=== PATIENT | female | born 1960 | race Caucasian/White ===

== ENCOUNTER 2025-01-20 18:05 | Emergency (ER) | payer MEDICAID ==
[~2025-01-20] VITALS: Ht 162.6 cm; Wt 75.0 kg
[2025-01-20 18:17] VITALS: BP 103/52; PULSE 97; RESP 18; TEMP 37.1; O2SAT 98
[2025-01-20] MEDS ORDERED: ASPIRIN 325MG EC TABLET PO ONE (19:00)
[2025-01-20 20:59] LABS: CHLORIDE 98 mEq/L (98-107); SODIUM 137 mEq/L (136-145)
[2025-01-20 21:00] LABS: CALCIUM 9.2 mg/dL (8.7-10.4); CARBON DIOXIDE 31 mEq/L (21-32)
[2025-01-20 21:05] LABS: CREATININE 0.7 mg/dL (0.6-1.0); GLUCOSE 97 mg/dL (70-105); UREA NITROGEN BLOOD 13 mg/dL (9-23)
[2025-01-20 21:12] LABS: POTASSIUM 2.5 mEq/L (3.5-5.1); TROPONIN I HIGH SENSITIVITY < 4 ng/L (3.0-34)
[2025-01-20] MEDS ORDERED: POTASSIUM CHLORIDE 20MEQ/PACKET PO ONE (21:30)
[2025-01-20 22:11] LABS: BASOPHILS % 0.4 % (0.0-2.0); EOSINOPHILS % 2.3 % (0.0-5.0); HEMATOCRIT. 38.8 % (36.0-48.0); HEMOGLOBIN. 13.3 g/dL (12.0-16.0); LYMPHOCYTES % 35.8 % (20.0-50.0); MEAN CORPUSCULAR HEMOGLOBIN 29.4 pg (28.0-32.0); MEAN CORPUSCULAR HGB CONC 34.3 g/dL (31.0-37.0); MEAN CORPUSCULAR VOLUME 85.6 fL (81.0-99.0); MONOCYTES % 8.7 % (2.0-8.0); NEUTROPHILS % 52.8 % (40.0-76.0); PLATELET 296 x1000/uL (130-400); RED BLOOD CELL COUNT 4.53 mill/uL (4.2-5.4); RED CELL DISTRIBUTION WIDTH 14.1 % (11.6-14.6); WHITE BLOOD COUNT 8.6 x1000/uL (4.5-11.0)
[2025-01-20 23:46] LABS: TROPONIN I HIGH SENSITIVITY < 4 ng/L (3.0-34)
[2025-01-21] MEDS ORDERED: ASPIRIN 325MG EC TABLET PO NR (01:15)
[2025-01-21] MEDS ORDERED: POTASSIUM CHLORIDE 20MEQ/PACKET PO NR (01:15)
== END 2025-01-20 19:33 ==
LOC: ER 18:05 → EDBEDREQ 23:12 → EDBEDREQTM 23:12
DX: R07.2 Precordial pain (principal); I95.89 Other hypotension; I49.8 Other specified cardiac arrhythmias
CPT/HCPCS: 36415; 71045; 80048; 83880; 84484; 85025; 93005; 99285